=== PATIENT | female | born 1960 | race African-American/Black ===

== ENCOUNTER 2016-11-14 14:25 | Emergency (ER) | payer OTHER ==
[~2016-11-14] VITALS: Ht 167.6 cm; Wt 159.0 kg
[2016-11-14 14:28] VITALS: BP 173/94; PULSE 91; RESP 16; TEMP 98.1; O2SAT 97
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
[2016-11-14] MEDS ORDERED: ROBA500T PO (14:56)
[2016-11-14] MEDS ORDERED: IBUP800T23 PO (14:56)
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
[2016-11-14] MEDS ORDERED: METHOCARBAMOL 500 MG TAB PO ONE (15:00)
[2016-11-14] MEDS ORDERED: IBUPROFEN 800 MG TAB PO ONE (15:00)
== END 2016-11-14 15:36 | disposition home or self-care (01) ==
LOC: NEPK 14:25
DX: S39.012A Strain of muscle, fascia and tendon of lower back, initial encounter (principal); S46.812A Strain of other muscles, fascia and tendons at shoulder and upper arm level, left arm, initial encounter; V49.9XXA Car occupant (driver) (passenger) injured in unspecified traffic accident, initial encounter
CPT/HCPCS: 99282